=== PATIENT | female | born 1995 | race Caucasian/White ===

== ENCOUNTER 2017-02-15 16:15 | Emergency (ER) | payer OTHER ==
[~2017-02-15] VITALS: Ht 170.2 cm; Wt 80.4 kg
[2017-02-15 16:25] VITALS: TEMP 37; Ht 170.2 cm; Wt 80.4 kg
[2017-02-15 16:50] VITALS: O2SAT 98
--- NOTE | 2017-02-15 17:22 | DIAGNOSTIC IMAGING REPORT ---
CHEST ONE VIEW PORTABLE CLINICAL HISTORY: EVALUATE RESPIRATORY DISTRESS.DYSPNEA dyspnea COMPARISON STUDY: No previous studies for comparison. FINDINGS: The bones soft tissues and hemidiaphragms are normal. The cardiomediastinal silhouette is normal. The lungs are clear. The pulmonary vasculature is normal. IMPRESSION: Negative chest. Electronically signed by: Benito Land M.D. 02/15/2017 5:21 PM Dictated Date/Time: 02/15/2017 5:21 PM
[2017-02-15 17:25] LABS: BASO % 0.2 %; BASO ABS # 0.02 K/uL (0-0.2); COMPLETE YES; EOS % 1.5 %; HEMATOCRIT 39.1 % (37-47); IG% 0.2 %; LYMPH % 42.6 %; LYMPH ABS # 3.41 K/uL (1.2-3.4); MEAN CELL VOLUME 84.3 fL (80-100); MEAN CORPUSCULAR HEMOGLOBIN 28.9 pg (25-34); MEAN CORPUSCULAR HGB CONC 34.3 g/dl (32-36); MEAN PLATELET VOLUME 10.1 fL (7.4-10.4); MONO % 4.9 %; NEUT % 50.6 %; PLATELET COUNT 244 K/uL (130-400); RED BLOOD COUNT 4.64 M/uL (4.2-5.4); WHITE BLOOD COUNT 8.01 K/uL (4.8-10.8)
[2017-02-15 17:42] LABS: BUN/CREATININE RATIO 8.9 (10-20); CREATININE 0.88 mg/dl (0.60-1.20); POTASSIUM 3.6 mmol/L (3.5-5.1)
[2017-02-15 17:45] LABS: ALB/GLOB RATIO 0.9 (0.9-2)
[2017-02-15 17:52] LABS: PREG INTERNAL NEGATIVE QC NEG CLEAR BACKGROUND; PREG INTERNAL POSITIVE QC POS CONTROL LINE
[2017-02-15] MEDS ORDERED: OPTIRAY 320 IV PRN (18:15)
--- NOTE | 2017-02-15 18:21 | DIAGNOSTIC IMAGING REPORT ---
CHEST CTA for PULMONARY ARTERIES CT DOSE: 231.03 mGy.cm HISTORY: Chest pain dyspnea TECHNIQUE: Multiaxial CT images of the chest were performed following the intravenous administration of contrast to evaluate the pulmonary arteries. Maximal intensity projection images were also obtained. COMPARISON STUDY: None. FINDINGS: There is a normal caliber thoracic aorta with no evidence for dissection. There is no evidence for pulmonary embolus. No pleural effusions. No pneumothorax. The liver and spleen are unremarkable. No mediastinal or hilar lymphadenopathy. The central airways are patent. The lungs are clear. IMPRESSION: No evidence for pulmonary embolus. The lungs are clear Electronically signed by: Benito Land M.D. 02/15/2017 6:20 PM Dictated Date/Time: 02/15/2017 6:20 PM
[2017-02-15 20:05] VITALS: BP 134/76; PULSE 95; O2SAT 100
--- NOTE | 2017-02-15 23:10 | EMERGENCY ROOM VISIT NOTE ---
History First contact with patient: 16:32 Chief Complaint: CHEST PAIN Stated Complaint: CHEST PAIN,SOB,LF SHOULDER BLADE PAIN,FEEL FAINT Nursing Triage Summary: at 1530 hours while in class pt had sudden onset of left posterior shoulder pain pt became sob, pt ambulated from class and pain raditated into front of chest and left shoulder pt "felt and extra beat in her heart and had near syncopal episode" no loc, no fall pt is anxious History of Present Illness The patient is a 21 year old female who presents to the Emergency Room with complaints of abrupt onset of left-sided chest pain, shortness of breath and pain radiating into the left shoulder blade. She also reports feeling nauseated and lightheaded. The patient reports that symptoms do not improve. She also felt an extra heartbeat before she felt lightheaded. The patient denies any syncope or fall. The patient reports that she did have a similar episode approximate one year ago with a normal workup. She has also been worked up for possible GI problems as well as she has had some mild discomfort in the left lower rib/left upper abdominal region. At the current time, the patient rates her discomfort a 4 out of 10. Review of Systems HEENT: Denies visual problems, hearing loss, tinnitus. Denies difficulty swallowing or oral lesions. PULMONARY: Denies cough, sputum production or hemoptysis. CARDIOVASCULAR: See history of present illness, otherwise denies dyspnea on exertion, orthopnea or peripheral edema. GASTROINTESTINAL: Denies diarrhea, constipation, nausea, vomiting, or current abdominal pain. GENITOURINARY: Denies dysuria, frequency, urgency or nocturia. NEUROLOGIC: Denies history of epilepsy, CVA, TIA or chronic headaches. MUSCULOSKELETAL: Denies history of joint tenderness/swelling. SKIN: Denies rashes or lesions. PSYCHIATRIC: Denies history of depression or mental illness. ENDOCRINE: Denies history of diabetes or thyroid disorders. Past Medical/Surgical History Medical Problems: (1) Anxiety Family History Patient reports no known family medical history. Social History Smoking Status: Never Smoker Alcohol Use: none Drug Use: none Marital Status: single Housing Status: lives with friends Occupation Status: student Current/Historical Medications No Active Prescriptions or Reported Meds Allergies Coded Allergies: No Known Allergies (Unverified , 02/15/17) Physical Exam Vital Signs Date Time Temp Pulse Resp B/P Pulse Ox O2 Delivery O2 Flow Rate FiO2 02/15/17 20:05 95 14 134/76 100 02/15/17 18:22 99 18 115/75 98 Room Air 02/15/17 17:04 90 02/15/17 16:50 98 Room Air 02/15/17 16:25 37.0 107 20 129/81 100 Room Air Pain Rating (0-10): 3.0 Physical Exam CONSTITUTIONAL: Healthy and well nourished. Alert and oriented X 3 with positive affect. PSYCHIATRIC: The patient is mildly anxious. HEENT: Normocephalic, atraumatic. Pupils equal, round and reactive. Ears and nares are clear. No scleral icterus or conjunctival injection/pallor. NECK: Full active range of motion without discomfort. No JVD or carotid bruits. RESPIRATORY: Clear to auscultation bilaterally with no wheezing, crackles, rhonchi or stridor. CARDIOVASCULAR: Tachycardic with no murmurs, rubs or gallops. GASTROINTESTINAL: Bowel sounds present in all quadrants. Abdomen is soft and nontender to palpation. No epigastric tenderness to palpation. No obvious hepatosplenomegaly. MUSCULOSKELETAL: Patient has no tenderness to palpation across the costochondral joints or left anterior chest wall. No worsening pain with left shoulder range of motion. INTEGUMENTARY: No rash or other significant dermatologic conditions noted. HEMATOLOGIC: No ecchymosis or petechiae noted LYMPHATICS: No adenopathy noted. NEUROLOGIC: No focal neurologic deficits noted. Medical Decision & Procedures ER Provider Diagnostic Interpretation: My interpretation of an initial ECG shows a normal sinus rhythm of [address] abnormalities. No other conduction abnormalities noted. There are no prior ECGs for comparison. Repeat 30 minute ECG showed a normal sinus rhythm of [address] pattern. My interpretation of a portable chest x-ray does not show any consolidations, pneumothorax or cardiac prominence. Radiologist report is as follows: CHEST ONE VIEW PORTABLE CLINICAL HISTORY: EVALUATE RESPIRATORY DISTRESS.DYSPNEA dyspnea COMPARISON STUDY: No previous studies for comparison. FINDINGS: The bones soft tissues and hemidiaphragms are normal. The cardiomediastinal silhouette is normal. The lungs are clear. The pulmonary vasculature is normal. IMPRESSION: Negative chest. Chest CT angiography does not show any evidence for pulmonary emboli, consolidations or other acute findings. Radiologist report is as follows: CHEST CTA for PULMONARY ARTERIES CT DOSE: 231.03 mGy.cm HISTORY: Chest pain dyspnea TECHNIQUE: Multiaxial CT images of the chest were performed following the intravenous administration of contrast to evaluate the pulmonary arteries. Maximal intensity projection images were also obtained. COMPARISON STUDY: None. FINDINGS: There is a normal caliber thoracic aorta with no evidence for dissection. There is no evidence for pulmonary embolus. No pleural effusions. No pneumothorax. The liver and spleen are unremarkable. No mediastinal or hilar lymphadenopathy. The central airways are patent. The lungs are clear. IMPRESSION: No evidence for pulmonary embolus. The lungs are clear Laboratory Results 02/15/17 17:10 Red Blood Count 4.64, Mean Corpuscular Volume 84.3, Mean Corpuscular Hemoglobin 28.9, Mean Corpuscular Hemoglobin Concent 34.3, Mean Platelet Volume 10.1, Neutrophils (%) (Auto) 50.6, Lymphocytes (%) (Auto) 42.6, Monocytes (%) (Auto) 4.9, Eosinophils (%) (Auto) 1.5, Basophils (%) (Auto) 0.2, Neutrophils # (Auto) 4.05, Lymphocytes # (Auto) 3.41, Monocytes # (Auto) 0.39, Eosinophils # (Auto) 0.12, Basophils # (Auto) 0.02 02/15/17 17:10 Test 02/15/17 17:10 02/15/17 17:11 02/15/17 18:47 White Blood Count 8.01 K/uL (4.8-10.8) Red Blood Count 4.64 M/uL (4.2-5.4) Hemoglobin 13.4 g/dL (12.0-16.0) Hematocrit 39.1 % (37-47) Mean Corpuscular Volume 84.3 fL (80-100) Mean Corpuscular Hemoglobin 28.9 pg (25-34) Mean Corpuscular Hemoglobin Concent 34.3 g/dl (32-36) Platelet Count 244 K/uL (130-400) Mean Platelet Volume 10.1 fL (7.4-10.4) Neutrophils (%) (Auto) 50.6 % Lymphocytes (%) (Auto) 42.6 % Monocytes (%) (Auto) 4.9 % Eosinophils (%) (Auto) 1.5 % Basophils (%) (Auto) 0.2 % Neutrophils # (Auto) 4.05 K/uL (1.4-6.5) Lymphocytes # (Auto) 3.41 K/uL (1.2-3.4) Monocytes # (Auto) 0.39 K/uL (0.11-0.59) Eosinophils # (Auto) 0.12 K/uL (0-0.5) Basophils # (Auto) 0.02 K/uL (0-0.2) RDW Standard Deviation 41.5 fL (36.4-46.3) RDW Coefficient of Variation 13.5 % (11.5-14.5) Immature Granulocyte % (Auto) 0.2 % Immature Granulocyte # (Auto) 0.02 K/uL (0.00-0.02) Anion Gap 7.0 mmol/L (3-11) Est Creatinine Clear Calc Drug Dose 110.4 ml/min Estimated GFR () 108.9 Estimated GFR (Non- 93.9 BUN/Creatinine Ratio 8.9 (10-20) Calcium Level 9.0 mg/dl (8.5-10.1) Total Bilirubin 0.3 mg/dl (0.2-1) Aspartate Amino Transf (AST/SGOT) 15 U/L (15-37) Alanine Aminotransferase (ALT/SGPT) 16 U/L (12-78) Alkaline Phosphatase 54 U/L (45-117) Total Creatine Kinase 91 U/L (26-192) Total Protein 7.9 gm/dl (6.4-8.2) Albumin 3.8 gm/dl (3.4-5.0) Globulin 4.1 gm/dl (2.5-4.0) Albumin/Globulin Ratio 0.9 (0.9-2) Human Chorionic Gonadotropin, Qual NEG (NEG) Bedside D-Dimer > 450 ng/mlFEU (0-450) Bedside Troponin I 0.000 ng/ml (0-0.045) The above labs were reviewed. Bedside troponin 2 were normal. Bedside d- dimer was elevated at 1200. Remaining labs were reviewed and were normal. ED Course Patient history and physical exam were performed. Nurse's notes were reviewed. Vital signs were reviewed with a normal blood pressure and O2 saturation on room air. The patient's initial heart rate was 107. IV access was established , and labs were drawn. The patient was placed on school lunch monitor. Her ECG and portable chest x-ray were otherwise unremarkable. Review of labs showed an elevated d-dimer. Troponin and additional labs were normal. At this point, chest CT angiography was performed to show no evidence for pulmonary emboli or other acute findings. Repeat 90 minute [id number] troponin and ECG were also normal. Her heart rate was normal as well at the conclusion of her workup. The case was further discussed with Dr. English, ED attending physician, who agrees with outpatient cardiology evaluation. The patient was provided information for the [facility] cardiology. She was instructed to contact them for a follow-up appointment within the next 2-3 days. She was instructed to limit her activities for now and tell she is reevaluated. She was instructed to return for any progressively worsening symptoms. The patient was happy with plan of care, voiced understanding of all discharge instructions, and denied any significant symptoms at the time of discharge. Medical Decision Differential diagnoses considered included myocardial infarction, pneumothorax, pneumonia, pulmonary emboli, pericarditis and myocarditis. Her workup today is not suggestive of these etiologies. The patient is somewhat anxious as well. Laboratory studies do not suggest abdominal etiology such as pancreatitis, cholecystitis or hepatitis. The patient is afebrile and has no leukocytosis to suggest infectious etiology. At this point, I do feel that the patient is safe for outpatient cardiology follow-up. She was instructed to return for any worsening or other concerning symptoms. Impression Primary Impression: Left sided chest pain Departure Information Dispostion Home / Self-Care Condition GOOD Prescriptions No Active Prescriptions or Reported Meds Referrals Ata Mayorga M.D. Forms HOME CARE DOCUMENTATION FORM, IMPORTANT VISIT INFORMATION Patient Instructions My [facility] Additional Instructions Rest and avoid any strenuous exercises/activities for now. Follow-up with [facility] cardiology (Dr. Mayorga) for reevaluation - call tomorrow morning for an appointment, and tell them that you were referred from the emergency department for evaluation of chest pain. Return to the emergency department for any progressively worsening symptoms.
== END 2017-02-15 20:04 | disposition home or self-care (01) ==
LOC: C.EDB 16:17 → C.EDA 20:04
DX: R07.9 Chest pain, unspecified (principal); F41.9 Anxiety disorder, unspecified

== ENCOUNTER 2017-02-17 00:05 | Emergency (ER) | payer OTHER ==
[~2017-02-17] VITALS: Ht 170.2 cm; Wt 79.9 kg
[2017-02-17 00:11] VITALS: TEMP 37; Ht 170.2 cm; Wt 79.9 kg
--- NOTE | 2017-02-17 02:13 | EMERGENCY ROOM VISIT NOTE ---
History First contact with patient: 00:18 Chief Complaint: LEG PAIN,LEG INJURY Stated Complaint: LEG PAIN,CHEST PAIN History of Present Illness The patient is a 21 year old female who presents to the Emergency Department by private vehicle for evaluation of her RIGHT calf pain. The patient was seen in this facility yesterday with LEFT-sided chest pain. She had an elevated d- dimer and a substance CTA was found to be unremarkable. She reports that she remembered today that she had been having pain in her RIGHT calf. She is concern for blood clot, particularly in the setting of an elevated d-dimer. The patient reports a history of blood clots or bleeding disorders otherwise. She rates her current discomfort as a 5/10. She denies any fevers, chills, shortness of breath, hemoptysis, nausea, or vomiting. She reports no smoking history. There is no family history of blood clots or bleeding disorders. Review of Systems A complete 10-point Review of Systems was discussed with the patient, with pertinent positives and negatives listed in the History of Present Illness. All remaining Review of Systems questions can be considered negative unless otherwise specified. Past Medical/Surgical History Medical Problems: (1) Anxiety Family History Patient reports no known family medical history. Social History Smoking Status: Never Smoker Alcohol Use: none Drug Use: none Marital Status: single Housing Status: lives with friends Occupation Status: student Current/Historical Medications No Active Prescriptions or Reported Meds Allergies Coded Allergies: No Known Allergies (Unverified , 02/17/17) Physical Exam Vital Signs Date Time Temp Pulse Resp B/P Pulse Ox O2 Delivery O2 Flow Rate FiO2 02/17/17 02:33 70 18 112/60 99 02/17/17 00:11 37.0 88 20 111/77 98 Room Air Pain Rating (0-10): 5 Physical Exam VITAL SIGNS - Vital signs and nursing notes were reviewed. GENERAL - 21-year-old female appearing her stated age and in noticeable discomfort throughout the exam. MUSCULOSKELETAL - RIGHT calf without erythema or edema. No palpable cords. Full range of motion of the RIGHT lower extremity with +5/5 strength appreciated bilaterally. NEUROLOGIC/VASCULAR - Neurovascularly intact distally with +3/5 dorsalis pedis pulses palpated bilaterally. Normal sensation to light and sharp touch appreciated distally. Medical Decision & Procedures ER Provider Diagnostic Interpretation: Radiological imaging and reports were reviewed by myself. Radiologist's Interpretation per [facility] as follows: US VENOUS RIGHT LOWER EXTREMITY: No DVT in the right lower extremity. ED Course Patient was seen and evaluated by myself. Previous emergency department visit note was reviewed. Ultrasound of the RIGHT lower extremity was obtained. Imaging results above. Imaging results were reviewed with the patient who acknowledges understanding. She was educated on worrisome symptoms for return visit to the emergency department. Patient discharged home afebrile and in good condition. Medical Decision Given the patient's presentation and stated complaints, I did elect to perform the above-mentioned workup. The patient presents today complaining of pain to the RIGHT calf. She has been seen in this facility yesterday for a full cardiac evaluation with negative enzymes 2. She reports that the d-dimer was elevated and she had remembered that she was having pain in her RIGHT calf. She is concern for DVT. She is not hypoxic. She is not tachycardic. She is not tachypneic. I do not feel that repeat labs are necessary at this point. Ultrasound ruled out DVT. The patient will follow up closely with [facility] or her primary care provider for ongoing management. She will return for any changing/worsening symptoms. Patient discharged home afebrile and in good condition. In the evaluation and treatment of this patient, the following differential diagnoses were considered: Musculoskeletal strain, DVT, cellulitis, dermatitis, compartment syndrome, amongst others. Impression Primary Impression: Right calf pain Departure Information Dispostion Home / Self-Care Condition GOOD Prescriptions No Active Prescriptions or Reported Meds Referrals No Doctor, Assigned (PCP) Patient Instructions My [facility] Additional Instructions You've been seen in the emergency department today for calf pain. For pain control, you can use the following [id number] medicines (if >12 yo): - Regular strength (325mg/tab) Tylenol (acetaminophen) 2 tabs every 4-6 hours as needed. Do not exceed 12 tablets in a 24 hour period. Avoid taking more than 4 grams (4000 mg) of Tylenol per day. This includes any other sources of acetaminophen you may take on a regular basis. - Regular strength (200 mg/tab) Advil (ibuprofen) 1-2 tabs every 4-6 hours as needed. Do not exceed a dose of 3200 mg per day. Follow-up with [facility] from today's visit. Return for any changing or worsening symptoms.
[2017-02-17 02:33] VITALS: BP 112/60; PULSE 70; O2SAT 99
--- NOTE | 2017-02-17 06:31 | DIAGNOSTIC IMAGING REPORT ---
ULTRASOUND RIGHT VENOUS DOPP LOWER EXT UNILAT CLINICAL HISTORY: Right lower leg pain COMPARISON STUDY: No previous studies for comparison. FINDINGS: Real-time and color flow Doppler imaging were performed. Flow was seen within the femoral, popliteal and calf veins with no intraluminal thrombus demonstrated. The saphenous vein is patent. IMPRESSION: No evidence of right lower extremity DVT. Electronically signed by: Austyn Devi M.D. 02/17/2017 6:29 AM Dictated Date/Time: 02/17/2017 6:29 AM
== END 2017-02-17 02:33 | disposition home or self-care (01) ==
LOC: C.EDB 00:06 → C.EDC 02:33
DX: M79.661 Pain in right lower leg (principal); F41.9 Anxiety disorder, unspecified